=== PATIENT | female | born 1980 | race African-American/Black ===

== ENCOUNTER 2016-12-14 22:32 | Emergency (ER) | payer OTHER ==
[~2016-12-14] VITALS: Ht 149.9 cm; Wt 68.0 kg
[~2016-12-14 22:32] MED LIST: NKM
[2016-12-14 22:45] VITALS: BP 131/75
[2016-12-14] MEDS ORDERED: Norco 5mg/325mg tab ORAL ONE (23:15)
[2016-12-14] MEDS ORDERED: PredniSONE 20mg tab ORAL ONE (23:15)
[2016-12-14] MEDS ORDERED: AZITHROMYCIN250 MG ORAL (23:18)
[2016-12-14] MEDS ORDERED: IBUPROFEN600 MG ORAL (23:18)
[2016-12-14] MEDS ORDERED: HYDROCODON-ACE1 EA15 ORAL (23:18)
--- NOTE | 2016-12-14 23:18 | Emergency Room Report ---
History of Present Illness General Chief Complaint: Sore Throat Source: Patient Present Illness HPI Is a 36-year-old female with no sign of and past medical history. She presents with sore throat and fever. Onset yesterday. She said that his white patches on her throat that she scraped off. Worse with swallowing. Pain is sharp in nature. 10 out of 10. No radiation. No drooling. No cough or congestion. No runny nose. Allergies: Coded Allergies: No Known Allergies (Unverified , 01/26/16) Patient History Past Medical History: see triage record, old chart reviewed Past Surgical History: other Pertinent Family History: none Social History: Denies: smoking Last Menstrual Period: 11/18/16 Now: No Immunizations: other Reviewed Nursing Documentation: PMH: Agreed, PSxH: Agreed Nursing Documentation-PM Past Medical History: No History, Except For Review of Systems Eye: Denies: blurred vision, eye pain ENT: Reports: throat pain, Denies: ear pain, nose congestion, throat swelling Respiratory: Denies: cough, shortness of breath Cardiovascular: Denies: chest pain, palpitations Gastrointestinal: Denies: abdominal pain, diarrhea, nausea, vomiting Musculoskeletal: Denies: back pain, joint pain Skin: Denies: rash Neurological: Denies: headache, numbness Endocrine: Denies: increased thirst, increased urine Hematologic/Lymphatic: Denies: easy bruising All Other Systems: negative except mentioned in HPI Physical Exam Vital Signs Date Time Temp Pulse Resp B/P Pulse Ox O2 Delivery O2 Flow Rate FiO2 12/14/16 22:38 99.1 91 16 131/75 98 Room Air vitals unremarkable. Sp02 EP Interpretation: reviewed, normal General Appearance: well appearing, no apparent distress, alert Head: normocephalic, atraumatic Eyes: bilateral eye EOMI, bilateral eye PERRL ENT: hearing grossly normal, uvula midline, tonsillar swelling, pharyngeal erythema, tonsillar exudate, other - no trismus Neck: full range of motion, supple, no meningismus Respiratory: chest non-tender, lungs clear, normal breath sounds Cardiovascular #1: regular rate, rhythm, no murmur Gastrointestinal: normal bowel sounds, non tender, no mass, no organomegaly, no bruit, non-distended Musculoskeletal: back normal, gait/station normal, normal range of motion Neurologic: alert, oriented x3 Psychiatric: mood/affect normal Skin: warm/dry Medical Decision Making Diagnostic Impression: Primary Impression: Acute tonsillitis Qualified Codes: J03.90 - Acute tonsillitis, unspecified ER Course Patient with acute tonsillitis. Most likely strep. She has no final symptoms. She looks well. No evidence of peritonsillar abscess or retropharyngeal abscess. We'll discharge home. Last Vital Signs Date Time Temp Pulse Resp B/P Pulse Ox O2 Delivery O2 Flow Rate FiO2 12/14/16 22:38 99.1 91 16 131/75 98 Room Air Status: improved Disposition: HOME, SELF-CARE Condition: Stable Scripts Azithromycin* (ZITHROMAX*) 250 Mg Tablet 250 MG ORAL DAILY, #6 TAB 0 Refills Take two tablets by mouth today, then take one tablet by mouth daily for four days Prov: BENNY PALOMO M.D. 12/14/16 Ibuprofen* (MOTRIN*) 600 Mg Tablet 600 MG ORAL THREE TIMES A DAY, #30 TAB 0 Refills Prov: BENNY PALOMO M.D. 12/14/16 Hydrocodone/Acetaminophen 5-325* (HYDROCODONE/ACETAMINOPHEN 5-325*) 1 Each Tablet 1 TAB ORAL Q6H Y for For Pain, #15 TAB 0 Refills Prov: BENNY PALOMO M.D. 12/14/16 Patient Instructions: Strep Throat Additional Instructions: Increase fluids. Saltwater gargle. Return if worse. Follow with your DrJed in 2 -3 days. BENNY PALOMO M.D. Dec 14, 2016 23:18
[2016-12-14 23:27] VITALS: BP 131/75
== END 2016-12-14 23:27 | disposition home or self-care (01) ==
LOC: EMR 23:06
DX: J03.90 Acute tonsillitis, unspecified (principal); R50.9 Fever, unspecified
CPT/HCPCS: 99284

== ENCOUNTER 2017-02-12 14:27 | Emergency (ER) | payer OTHER ==
[~2017-02-12] VITALS: Ht 149.9 cm; Wt 68.0 kg
[~2017-02-12 14:27] MED LIST changes: +AZITHROMYCIN250 MG ORAL; +HYDROCODON-ACE1 EA15 ORAL; +IBUPROFEN600 MG ORAL
[2017-02-12 14:57] VITALS: BP 99/51
--- NOTE | 2017-02-12 15:05 | Emergency Room Report ---
History of Present Illness General Chief Complaint: Multiple Trauma/Fall Source: Patient, Medical Record (Marilou Sethi) Present Illness HPI 36 YO Female presents to the ED c/o 10/10 in severity Left great toe, and sacral pain s/p mechanical slip and fall twice first pt. fell /slid down some stairs on her sacrum. then pt. states she was running and tripped her great toe was jammed approximately 1 week ago. pt. reports she also sustained some abrasions. pt. states she is UTD with tetanus. Pt. reports pain is exacerbated with walking and weight bearing. pt. denies previous injury to the low back or affected foot. pt. denies bruising, swelling or erythema. denies hitting her head or LOC. Denies taking blood thinning medications. denies hx of gout/pseudo gout or arthritis. pt. denies imbalance. pt. denies injury to the toe nail. Pt. denies however states she did not have period last month. Denies numbness tingling or loss of sensation or gross motor movements of the extremities, incontinence of bowel or bladder. Denies CP, Palpitations, LOC, AMS , dizziness, Changes in Vision, Sensation, paresthesias, or a sudden severe headache. (Marilou Sethi) Allergies: Coded Allergies: No Known Allergies (Unverified , 01/26/16) Patient History Past Medical History: see triage record Past Surgical History: none Pertinent Family History: none Last Menstrual Period: 2 months ago Now: No Reviewed Nursing Documentation: PMH: Agreed, PSxH: Agreed (Marilou Sethi) Nursing Documentation-PMH Past Medical History: No History, Except For (Marilou Sethi) Review of Systems All Other Systems: negative except mentioned in HPI (Marilou Sethi) Physical Exam Vital Signs Date Time Temp Pulse Resp B/P (MAP) Pulse Ox O2 Delivery O2 Flow Rate FiO2 02/12/17 14:57 97.9 92 16 99/51 97 Room Air Sp02 EP Interpretation: reviewed, normal General Appearance: no apparent distress, alert, GCS 15, non-toxic Head: normocephalic, atraumatic Eyes: bilateral eye normal inspection, bilateral eye PERRL ENT: hearing grossly normal, normal voice Neck: full range of motion, no bony tend Respiratory: lungs clear, normal breath sounds, speaking full sentences Cardiovascular #1: regular rate, rhythm Cardiovascular #2: 2+ dorsalis pedis (L) Musculoskeletal: back normal, gait/station normal - Pt is favoring the left foot, able to stand, normal range of motion, tender - TTP to the DIP of the left great toe, no swelling, no bruises, no subungual hematoma, no erythema. TTP to the midline sacrum, no bruises, no erythema, no swelling or obvious deformity palpated or observed. Neurologic: alert, oriented x3, responsive, motor strength/tone normal, sensory intact, speech normal Psychiatric: judgement/insight normal, memory normal, mood/affect normal Skin: normal color, no rash, warm/dry, well hydrated, abrasions - to the anterior knees, and right elbow, no evidence of infeciton, no erythema, no crusting, no d/c or bleeding. healing with older appearance (Marilou Sethi) Medical Decision Making PA Attestation Dr. Rodriguez is my supervising Physician whom patient management has been discussed with. (Marilou Sethi PJedAJed) Diagnostic Impression: Primary Impression: Contusion Qualified Codes: S30.0XXA - Contusion of lower back and pelvis, initial encounter Additional Impressions: Abrasion Coccygeal pain Coccygeal contusion Qualified Codes: S30.0XXA - Contusion of lower back and pelvis, initial encounter Sprain of toe, great, left Qualified Codes: S93.502A - Unspecified sprain of left great toe, initial encounter ER Course 36 YO Female presents to the ED c/o 03/20 in severity Left great toe, and sacral pain s/p mechanical slip and fall twice first pt. fell /slid down some stairs on her sacrum. then pt. states she was running and tripped her great toe was jammed approximately 1 week ago. pt. reports she also sustained some abrasions. pt. states she is UTD with tetanus. Pt. reports pain is exacerbated with walking and weight bearing. pt. denies previous injury to the low back or affected foot. pt. denies bruising, swelling or erythema. denies hitting her head or LOC. Denies taking blood thinning medications. denies hx of gout/pseudo gout or arthritis. pt. denies imbalance. pt. denies injury to the toe nail. Pt. denies however states she did not have period last month. Denies numbness tingling or loss of sensation or gross motor movements of the extremities, incontinence of bowel or bladder. Denies CP, Palpitations, LOC, AMS , dizziness, Changes in Vision, Sensation, paresthesias, or a sudden severe headache. Ddx considered but are not limited to Fracture, dislocation, contusion, Sprain/ Strain/Spasm,abrasions Vital signs: are WNL, pt. is afebrile H&PE are most consistent with musculoskeletal injury will perform imaging to r/ o fractures/dislocations. ORDERS: - Urine Hcg: Positive -Bacitracin applied to abrasions - X-ray Left Foot 3 views - negative for fx, Dislocation, or significant soft tissue injury, per preliminary read in ED by Dr. Rodriguez - interpretation is scribed by PA. -- X-ray Coccyx 3 views - Canceled Due to POSITIVE ED INTERVENTIONS: - Tylenol PO - The great toe was luis antonio taped. - Pt. was provided with a pair of crutches. -D/w pt. the results of her imaging for her TOE. d/w pt. conservative treatment , and follow up with both PCP and OBGYN. d/w pt. to return promptly to ED with worsening or new symptoms. DISCHARGE: At this time pt. is stable for d/c to home. Will provide printed patient care instructions, and any necessary prescriptions. Care plan and follow up instructions have been discussed with the patient prior to discharge. (Marilou Sethi) Other X-Ray Diagnostic Results Other X-Ray Diagnostic Results : Interpreting ER Provider: Scribe documentation reviewed by me and is accurate, Keyur Rodriguez MD. (Keyur Rodriguez M.D.) Last Vital Signs Date Time Temp Pulse Resp B/P (MAP) Pulse Ox O2 Delivery O2 Flow Rate FiO2 02/12/17 14:57 97.9 92 16 99/51 97 Room Air (Marilou Sethi) Disposition: HOME, SELF-CARE Condition: Stable Scripts Cmb#95/Iron/Fa/Dha ( + DHA COMBO PACK) 1 Each Combo..pkg 1 EACH PO DAILY for 30 Days, #1 PACK Prov: Mairlou Sethi 02/12/17 Acetaminophen* (TYLENOL EXTRA STRENGTH*) 500 Mg Tablet 500 MG ORAL Q6H, #20 TAB 0 Refills Prov: Marilou Sethi 02/12/17 Bacitracin/Polymyxin B Sulfate (BACITRACIN-POLYMYXIN OINTMENT) 28.35 Gm Oint...g. 1 APPLIC TP BID, #28.3 GM Prov: Marilou Sethi 02/12/17 Departure Forms: Return to Work Return to Work Date: Feb 15, 2017 Work Restrictions: No Heavy Lifting, No Prolonged Standing Other Restrictions: light duty x 1 week. Return to Full Activity: Feb 22, 2017 Patient Instructions: Abrasion, [id number], Contusion, Foot Sprain Additional Instructions: Take medications as directed. Follow up with a Primary Care Provider in 3-5 days, even if your symptoms have resolved. --Please review list of primary care clinics, if you do not already have a primary care provider Return sooner to ED if new symptoms occur, or current symptoms become worse. Do not drink alcohol, drive, or operate heavy machinery while taking [ ] as this may cause drowsiness. - Please note that this Emergency Department Report was dictated using [employer] technology software, occasionally this can lead to erroneous entry secondary to interpretation by the dictation equipment. Marilou Sethi Feb 12, 2017 15:05 Keyur Rodriguez M.D. Feb 14, 2017 04:25
[2017-02-12] MEDS ORDERED: Norco 7.5mg/325mg tab ORAL ONE (15:15)
[2017-02-12] MEDS ORDERED: Bacitracin Oint UD TOPIC ONE (15:15)
[2017-02-12] MEDS ORDERED: PRENATAL + DHA1 EAC2 PO (17:53)
[2017-02-12] MEDS ORDERED: BACITRACIN-P28.35 GM TP (17:53)
[2017-02-12] MEDS ORDERED: TYLENOL EXTRA500 MG ORAL (17:53)
[2017-02-12 18:30] VITALS: BP 112/73
--- NOTE | 2017-02-13 11:31 | Diagnostic Imaging Report ---
Indication: Pain Comparison: None Findings: 3 views of the left foot were obtained. No acute fractures, malalignment, erosions or periostitis are identified. Bone mineralization is within normal limits. Soft tissues are unremarkable. Impression: No acute findings
== END 2017-02-12 18:33 | disposition home or self-care (01) ==
LOC: EMR 16:46
DX: S30.0XXA Contusion of lower back and pelvis, initial encounter (principal); S93.502A Unspecified sprain of left great toe, initial encounter; S80.212A Abrasion, left knee, initial encounter; S80.211A Abrasion, right knee, initial encounter; S50.311A Abrasion of right elbow, initial encounter; W10.9XXA Fall (on) (from) unspecified stairs and steps, initial encounter; Y93.9 Activity, unspecified; Y92.9 Unspecified place or not applicable
CPT/HCPCS: 81025; 99284

== ENCOUNTER 2017-02-23 19:58 | Emergency (ER) | payer OTHER ==
[~2017-02-23] VITALS: Ht 149.9 cm; Wt 69.4 kg
[~2017-02-23 19:58] MED LIST changes: +BACITRACIN-P28.35 GM TP; +PRENATAL + DHA1 EAC2 PO; +TYLENOL EXTRA500 MG ORAL
[2017-02-23 20:35] VITALS: BP 126/80
[2017-02-23] MEDS ORDERED: Norco 5mg/325mg tab ORAL ONE (22:00)
[2017-02-23] MEDS ORDERED: KEFLEX500 MG ORAL (22:39)
[2017-02-23] MEDS ORDERED: IBUPROFEN600 MG ORAL (22:39)
[2017-02-23] MEDS ORDERED: NORCO 5-325 TA1 EACH ORAL (22:39)
[2017-02-23] MEDS ORDERED: BACTRIM DS TAB1 EAC1 ORAL (22:39)
[2017-02-23] MEDS ORDERED: Cephalexin 500mg cap ORAL ONE (22:45)
[2017-02-23] MEDS ORDERED: Bactrim DS (160mg/800mg) tab ORAL ONE (22:45)
[2017-02-23 22:50] VITALS: BP 125/79
[2017-02-23 23:00] VITALS: BP 126/78
--- NOTE | 2017-02-24 11:34 | Diagnostic Imaging Report ---
Indication: Pain Findings: 2 views of the right femur were obtained. No acute fractures, malalignment, erosions or periostitis are identified. Bone mineralization is within normal limits. Soft tissues are unremarkable. Impression: Negative examination of the femur
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
== END 2017-02-23 23:00 | disposition home or self-care (01) ==
LOC: EMR 20:45
DX: L02.415 Cutaneous abscess of right lower limb (principal)
CPT/HCPCS: 99283

== ENCOUNTER 2018-05-08 14:24 | Emergency (ER) | payer SELFPAY ==
[~2018-05-08] VITALS: Ht 149.9 cm; Wt 63.5 kg
[~2018-05-08 14:24] MED LIST changes: +BACTRIM DS TAB1 EAC1 ORAL; +KEFLEX500 MG ORAL; +NORCO 5-325 TA1 EACH ORAL
[2018-05-08] MEDS ORDERED: Albuterol ud Inhalation HHN ONE (15:00)
--- NOTE | 2018-05-08 15:03 | Emergency Room Report ---
History of Present Illness General Chief Complaint: Flu Like Symptoms Source: Patient Present Illness HPI Patient states that right around she began to feel code with some weakness cough congestion subjective fevers and chills. Patient try to go to work on Sunday and then subsequently had a syncopal event. She states that she hurt her shoulder but she is able to move it without difficulty. She denies any neck pain chest pain shortness of breath. She does complain of a cough that is persistent subjective fevers and chills. Patient states that her temperature yesterday was 103. She complains of runny nose sore throat and earaches. No other complaints are noted. Symptoms noted to be moderate.No other modifying factors. No other associated signs and symptoms. No other complaints were noted. Allergies: Coded Allergies: No Known Allergies (Unverified , 01/26/16) Patient History Past Medical History: none Past Surgical History: none Pertinent Family History: none Social History: Denies: smoking, alcohol use, drug use Last Menstrual Period: last month Reviewed Nursing Documentation: PMH: Agreed; PSxH: Agreed Review of Systems All Other Systems: negative except mentioned in HPI Physical Exam Vital Signs Date Time Temp Pulse Resp B/P (MAP) Pulse Ox O2 Delivery O2 Flow Rate FiO2 05/08/18 14:29 98.1 86 18 98/72 99 Room Air Sp02 EP Interpretation: reviewed, normal General Appearance: alert, moderate distress Head: atraumatic Eyes: bilateral eye normal inspection ENT: normal ENT inspection, hearing grossly normal, normal voice Neck: normal inspection, full range of motion, supple, no bony tend Respiratory: normal inspection, no respiratory distress, no retraction, decreased breath sounds, wheezing - Mild expiratory Cardiovascular #1: regular rate, rhythm, no edema Gastrointestinal: normal inspection, normal bowel sounds, non tender, soft, no guarding, no hernia Genitourinary: no CVA tenderness Musculoskeletal: normal inspection, back normal, normal range of motion Neurologic: normal inspection, alert, responsive, speech normal Psychiatric: normal inspection, judgement/insight normal, anxious Skin: normal inspection, normal color, no rash Procedures Splinting Splinting : Consent: Verbal Location: left pinky finger Pre-Made Type: metal Pre-Proc Neuro Vasc Exam: normal Post-Proc Neuro Vasc Exam: normal Patient Tolerated: Well Complications: None Medical Decision Making Diagnostic Impression: Primary Impression: Sprain of finger, left ER Course Patient presents emergency department today complaining of injury to the left pinky finger. Differential considerations cofactors discussion versus strain. Given patient's presentation I felt that x-rays are indicated rule out fracture. X-rays did not show any evidence fracture. Therefore felt the patient likely strained her finger. When I reexamined the patient to inform her of the x-ray results she actually informed me that she's injured it 3 times. I advised that she needed to follow with primary care physician patient' s finger will be splinted she is advised follow-up with hand surgeon as well.Patient is advised to follow up with primary doctor in 2-3 days and return the emergency room for any worsening symptoms and as needed. EKG Diagnostic Results Rate: normal Rhythm: NSR ST Segments: no acute changes Rhythm Strip Diag. Results EP Interpretation: yes Rate: 82 Rhythm: NSR, no PVC's, no ectopy Other X-Ray Diagnostic Results Other X-Ray Diagnostic Results : X-Ray ordered: left 5th finger xray # of Views/Limited Vs Complete: 3 View Indication: Pain EP Interpretation: Yes PA Xray: Interpretation reviewed Interpretation: no dislocation, no fractures, other - soft tissue swelling Impression: Other - soft tissue swelling, no fracture Electronically Signed by: Electronically signed by Marcell Conrad MD Last Vital Signs Date Time Temp Pulse Resp B/P (MAP) Pulse Ox O2 Delivery O2 Flow Rate FiO2 05/08/18 14:29 98.1 86 18 98/72 99 Room Air Status: improved Disposition: HOME, SELF-CARE Condition: Stable Scripts Codeine/Promethazine Hcl* (PROMETHAZINE-CODEINE SYRUP*) 118 Ml Syrup 5 ML ORAL Q4H PRN for For Cough for 7 Days, ML 0 Refills Prov: Marcell Conrad MD 05/08/18 Referrals: NOT CHOSEN IPA/,REFERRING (PCP) Marcell Conrad MD May 08, 2018 15:03
--- NOTE | 2018-05-08 15:58 | Diagnostic Imaging Report ---
Indication: Cough Comparison: None A single view chest radiograph was obtained. Findings: Cardiomediastinal appearance is within normal limits for age. The lungs are clear. Pulmonary vascularity is appropriate. The diaphragmatic contour is smooth and costophrenic angles are sharp. No pleural effusions are identified. The bones are unremarkable. Impression: No acute findings
[2018-05-08 16:24] VITALS: BP 111/62
[2018-05-08 16:29] LABS: BASOPHILS % (AUTO) 0.6 % (0.0-2.0); EOSINOPHILS % (AUTO) 1.5 % (0.0-3.0); HEMATOCRIT 40.8 % (37.0-47.0); HEMOGLOBIN 14.1 G/DL (12.0-16.0); LYMPHOCYTES % (AUTO) 51.9 % (20.0-45.0); MEAN CORPUSCULAR VOLUME 97 FL (80-99); MONOCYTES % (AUTO) 7.4 % (1.0-10.0); NEUTROPHILS % (AUTO) 38.6 % (45.0-75.0); PLATELET COUNT 257 K/UL (150-450); RED BLOOD COUNT 4.23 M/UL (4.20-5.40); RED CELL DISTRIBUTION WIDTH 12.3 % (11.6-14.8); WHITE BLOOD COUNT 5.8 K/UL (4.8-10.8)
[2018-05-08 16:37] LABS: ANION GAP 8 mmol/L (5-15); BLOOD UREA NITROGEN 13 mg/dL (7-18); CALCIUM 8.8 MG/DL (8.5-10.1); CARBON DIOXIDE 28 MMOL/L (21-32); CHLORIDE 106 MMOL/L (98-107); CREATININE 0.8 MG/DL (0.55-1.30); POTASSIUM 3.9 MMOL/L (3.5-5.1); SODIUM 142 MMOL/L (136-145)
[2018-05-08 16:51] LABS: ALANINE AMINOTRANSFERASE 13 U/L (12-78); ALBUMIN 3.1 G/DL (3.4-5.0); ALBUMIN/GLOBULIN RATIO 0.7 (1.0-2.7); ALKALINE PHOSPHATASE 85 U/L (46-116); ASPARTATE AMINO TRANSFERASE 13 U/L (15-37); BILIRUBIN,TOTAL 0.3 MG/DL (0.2-1.0); CKMB < 0.5 NG/ML (0.0-3.6); CREATINE KINASE 82 U/L (26-308)
[2018-05-08 17:19] VITALS: BP 114/67
[2018-05-08] MEDS ORDERED: PROMETHAZINE-C118 M1 ORAL (17:52)
[2018-05-08 18:35] VITALS: BP 114/67
== END 2018-05-08 18:41 | disposition home or self-care (01) ==
LOC: EMR 14:55
DX: R55 Syncope and collapse (principal); B34.9 Viral infection, unspecified; J40 Bronchitis, not specified as acute or chronic
CPT/HCPCS: 29130; 36415; 71045; 80053; 82550; 82553; 83690; 84484; 85025; 93005; 94640; 94664; 96360; 99284

== ENCOUNTER 2018-09-30 22:04 | Emergency (ER) | payer MEDICAID, OTHER ==
[~2018-09-30] VITALS: Ht 149.9 cm; Wt 63.5 kg
[~2018-09-30 22:04] MED LIST changes: +PROMETHAZINE-C118 M1 ORAL
[2018-09-30 22:42] VITALS: BP 106/67
[2018-09-30] MEDS ORDERED: ZOFRAN4 MG ORAL (22:47)
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
[2018-09-30 22:54] VITALS: BP 106/67
== END 2018-09-30 22:58 | disposition home or self-care (01) ==
LOC: EMR 22:48
DX: R10.84 Generalized abdominal pain (principal); R11.2 Nausea with vomiting, unspecified; R19.7 Diarrhea, unspecified; R07.0 Pain in throat
CPT/HCPCS: 99282

== ENCOUNTER 2018-11-23 23:53 | Emergency (ER) | payer OTHER ==
[~2018-11-23] VITALS: Ht 149.9 cm; Wt 72.6 kg
[~2018-11-23 23:53] MED LIST changes: +ZOFRAN4 MG ORAL
[2018-11-24 00:04] VITALS: BP 141/93
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
[2018-11-24] MEDS ORDERED: HYDROcodone/Acetamin 5/325 tab ORAL ONE (00:30)
--- NOTE | 2018-11-24 00:40 | NUR ---
ED Nurse Note: Meds given.
[2018-11-24] MEDS ORDERED: HYDROCODON-ACE1 EA15 ORAL (00:45)
[2018-11-24] MEDS ORDERED: IBUPROFEN600 MG ORAL (00:45)
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
[2018-11-24 00:50] VITALS: BP 138/91
--- NOTE | 2018-11-24 00:50 | NUR ---
ER DISCHARGE NOTE: Patient is cleared to be discharged per Dr. Turner. Pain meds given as ordered. Pt is aox4 on room air with stable vital signs. Pt was given dc and prescription instructions. Pt was able to verbalize understanding. Pt's id band removed. Pt is able to ambulate with steady gait and took all belongings.
== END 2018-11-24 00:50 | disposition home or self-care (01) ==
LOC: EMR 11-24 00:30
DX: M79.10 Myalgia, unspecified site (principal)
CPT/HCPCS: 99282

== ENCOUNTER 2019-04-28 21:49 | Emergency (ER) | payer SELFPAY ==
[~2019-04-28] VITALS: Ht 149.9 cm; Wt 68.0 kg
[2019-04-28 23:10] VITALS: BP 103/69
[2019-04-28] MEDS ORDERED: Acetaminophen 500mg (ES) tab ORAL ONE (23:15)
--- NOTE | 2019-04-28 23:19 | Emergency Room Report ---
History of Present Illness General Chief Complaint: Fever Source: Patient Present Illness HPI This is a 39-year-old female with history of bronchitis. She presents with chief complaint of fever and shortness of breath. Onset yesterday. She has diffuse body pain. Does have some increased urination and dysuria. No nausea no vomiting. Body pain was 10 out of 10. Better after her sister gave her [employer]. [place] short of breath but only has a slight cough. Denies any other complaint. Allergies: Coded Allergies: No Known Allergies (Unverified , 01/26/16) Patient History Past Medical History: see triage record, old chart reviewed Past Surgical History: none Pertinent Family History: none Social History: Denies: smoking Last Menstrual Period: current Now: No Immunizations: other Reviewed Nursing Documentation: PMH: Agreed; PSxH: Agreed Nursing Documentation-PMH Hx Asthma: Yes - BRONCHITIS Review of Systems Constitutional: Reports: fever, malaise Eye: Denies: eye pain, blurred vision ENT: Denies: ear pain, nose congestion, throat swelling Respiratory: Denies: cough, shortness of breath Cardiovascular: Denies: chest pain, palpitations Gastrointestinal: Denies: abdominal pain, diarrhea, nausea, vomiting Genitourinary: Reports: dysuria Musculoskeletal: Reports: back pain; Denies: joint pain Skin: Denies: rash Neurological: Denies: headache, numbness Endocrine: Denies: increased thirst, increased urine Hematologic/Lymphatic: Denies: easy bruising All Other Systems: negative except mentioned in HPI Physical Exam Vital Signs Date Time Temp Pulse Resp B/P (MAP) Pulse Ox O2 Delivery O2 Flow Rate FiO2 04/28/19 22:05 102.9 118 18 103/69 (80) 96 Room Air Vitals with fever Sp02 EP Interpretation: reviewed, normal General Appearance: well appearing, no apparent distress, alert Head: normocephalic, atraumatic Eyes: bilateral eye PERRL, bilateral eye EOMI ENT: hearing grossly normal, normal pharynx Neck: full range of motion, supple, no meningismus Respiratory: chest non-tender, lungs clear, normal breath sounds Cardiovascular #1: regular rate, rhythm, no murmur Gastrointestinal: normal bowel sounds, non tender, no mass, no organomegaly, no bruit, non-distended Musculoskeletal: back normal, gait/station normal, normal range of motion Psychiatric: mood/affect normal Medical Decision Making Diagnostic Impression: Primary Impression: Pyelonephritis Additional Impression: SIRS (systemic inflammatory response syndrome) ER Course Patient presents with a fever. She does have some back pain and UTI. Most likely early pyelonephritis with SIRS response. She felt better now. Dose of Rocephin given. No evidence of meningitis, sepsis, pneumonia to name a few. Will discharge home. Chest X-Ray Diagnostic Results Chest X-Ray Diagnostic Results : Chest X-Ray Ordered: Yes # of Views/Limited/Complete: 1 View Indication: Shortness of Breath EP Interpretation: Yes Interpretation: no consolidation, no effusion, no pneumothorax, no acute cardiopulmonary disease Impression: No acute disease Electronically Signed by: Lamberto Turner MD Last Vital Signs Date Time Temp Pulse Resp B/P (MAP) Pulse Ox O2 Delivery O2 Flow Rate FiO2 04/28/19 23:10 102.9 105 18 103/69 96 Room Air Status: improved Disposition: HOME, SELF-CARE Condition: Stable Scripts Ibuprofen* (MOTRIN*) 600 Mg Tablet 600 MG ORAL THREE TIMES A DAY, #30 TAB 0 Refills Prov: Lamberto Turner MD 04/29/19 Cephalexin* (KEFLEX*) 500 Mg Capsule 500 MG ORAL TID, #30 CAP Prov: Lamberto Turner MD 04/29/19 Referrals: NOT CHOSEN [facility]/,REFERRING (PCP) Additional Instructions: Increase fluids. Follow-up with your doctor in 2 to 3 days for recheck if not better. Return if worse. Lamberto Turner MD Apr 28, 2019 23:19
[2019-04-28 23:30] LABS: EOSINOPHILS % (AUTO) 0.1 % (0.0-3.0); HEMATOCRIT 38.6 % (37.0-47.0); HEMOGLOBIN 14.2 G/DL (12.0-16.0); LYMPHOCYTES % (AUTO) 14.7 % (20.0-45.0); MEAN CORPUSCULAR VOLUME 95 FL (80-99); MONOCYTES % (AUTO) 6.6 % (1.0-10.0); NEUTROPHILS % (AUTO) 77.7 % (45.0-75.0); PLATELET COUNT 207 K/UL (150-450); RED BLOOD COUNT 4.06 M/UL (4.20-5.40); RED CELL DISTRIBUTION WIDTH 10.9 % (11.6-14.8)
[2019-04-28 23:40] LABS: ANION GAP 8 mmol/L (5-15); BLOOD UREA NITROGEN 7 mg/dL (7-18); CALCIUM 8.4 MG/DL (8.5-10.1); CARBON DIOXIDE 25 MMOL/L (21-32); CHLORIDE 99 MMOL/L (98-107); POTASSIUM 3.2 MMOL/L (3.5-5.1); SODIUM 132 MMOL/L (136-145)
[2019-04-28 23:55] LABS: ALANINE AMINOTRANSFERASE 18 U/L (12-78); ALBUMIN/GLOBULIN RATIO 0.6 (1.0-2.7); ALKALINE PHOSPHATASE 91 U/L (46-116); ASPARTATE AMINO TRANSFERASE 15 U/L (15-37); BILIRUBIN,TOTAL 1.1 MG/DL (0.2-1.0)
[2019-04-29 00:11] LABS: APPEARANCE,URINE CLOUDY; BILIRUBIN, URINE NEGATIVE (NEGATIVE); GLUCOSE, URINE (UA) NEGATIVE (NEGATIVE); KETONES,URINE 2+ (NEGATIVE); LEUKOCYTE ESTERASE ,URINE 3+ (NEGATIVE); NITRITE,URINE POSITIVE (NEGATIVE); PH,URINE 6 (4.5-8.0); PROTEIN,URINE 3+ (NEGATIVE); UROBILINOGEN,URINE 8 MG/DL (0.0-1.0)
[2019-04-29 00:20] LABS: BILIRUBIN,DIRECT 0.3 MG/DL (0.0-0.3)
[2019-04-29 00:22] LABS: COLOR,URINE YELLOW
[2019-04-29] MEDS ORDERED: cefTRIAXone 2 GM in NS 55 ML IVPB ONE (00:45)
[2019-04-29] MEDS ORDERED: IBUPROFEN600 MG ORAL (01:09)
[2019-04-29] MEDS ORDERED: CEPHALEXIN500 MG ORAL (01:09)
[2019-04-29 01:20] VITALS: BP 120/72
--- NOTE | 2019-04-29 12:54 | Diagnostic Imaging Report ---
Indication: Shortness of breath Technique: One view of the chest Comparison: 05/08/2018 Findings: Lungs and pleural spaces are clear. Heart size is normal no significant change Impression: No acute process
== END 2019-04-29 01:20 | disposition home or self-care (01) ==
LOC: EMR 23:08
DX: N12 Tubulo-interstitial nephritis, not specified as acute or chronic (principal); R65.10 Systemic inflammatory response syndrome (SIRS) of non-infectious origin without acute organ dysfunction
CPT/HCPCS: 36415; 71045; 80053; 81003; 81025; 82248; 83605; 85025; 86710; 87086; 87181; 96361; 96365; 99284; J0696; J7030